=== PATIENT | female | born 1995 | race African-American/Black ===

== ENCOUNTER 2019-03-31 16:25 | Emergency (ER) | payer SELFPAY ==
[~2019-03-31] VITALS: Ht 162.6 cm; Wt 74.0 kg
[2019-03-31 16:33] VITALS: BP 128/66
== END 2019-03-31 21:40 | disposition left against medical advice (07) ==
LOC: ER 16:25
DX: Z53.21 Procedure and treatment not carried out due to patient leaving prior to being seen by health care provider (principal)